=== PATIENT | male | born 1965 | race Two or more races ===

== ENCOUNTER 2020-05-25 12:26 | Outpatient (CLI) | payer MEDICAID ==
--- NOTE | 2020-05-25 13:30 | Consultation ---
DATE OF CONSULTATION: 05/25/2020 CHIEF COMPLAINT: Referral for screening colonoscopy. PAST MEDICAL HISTORY: 1. Hypertension. 2. GERD. 3. Gastritis. PAST SURGICAL HISTORY: He had kind of fishbone stuck in the rectum surgery. MEDICATIONS: Currently on Prilosec. FAMILY HISTORY: No family history of GI malignancies. SOCIAL HISTORY: The patient denies any tobacco, alcohol, or drug abuse. ALLERGIES: To some kind of antibiotics. He does not remember the name, but he is not sure penicillin. REVIEW OF SYSTEMS: A 10-point review of systems was performed and pertinent positives in HPI. PHYSICAL EXAMINATION: VITAL SIGNS: Temperature 98.1. Vital signs stable. HEENT: Normocephalic and atraumatic. Sclerae anicteric. NECK: Supple. No evidence of obvious lymphadenopathy. CARDIOVASCULAR: Regular rate and rhythm. Plus S1 and S2. LUNGS: Decreased breath sounds bilaterally based on supine exam. ABDOMEN: Soft, nontender. No rebound. No guarding. No peritoneal sign. EXTREMITIES: No cyanosis. No clubbing. No edema. ASSESSMENT AND PLAN: The patient is a 54-year-old male, need screening colonoscopy. The patient was given instruction for colonoscopy. Risks and benefits of procedure was explained to him. We will schedule him when authorization is obtained. Melvin Garrett M.D. DR: Chaim JOB#: [id number] CC:
== END 2020-05-25 14:26 | disposition home or self-care (01) ==
LOC: PAN 12:26
DX: K21.9 Gastro-esophageal reflux disease without esophagitis (principal); I10 Essential (primary) hypertension; Z79.899 Other long term (current) drug therapy
CPT/HCPCS: G0463

== ENCOUNTER 2020-08-16 13:52 | Outpatient (CLI) | payer MEDICAID ==
[~2020-08-16 13:52] MED LIST: COLACE100 MG ORAL; PRILOSEC OTC20 MG ORAL; VENTOLIN HFA18 GM INH
[2020-08-16 14:10] VITALS: BP 150/81
[2020-08-16] MEDS ORDERED: LOSARTAN POTASS25 MG ORAL (14:13)
--- NOTE | 2020-08-19 11:35 | General Progress Note ---
Subjective ROS Limited/Unobtainable: Yes Allergies: Uncoded Allergies: ABX (Allergy, Unknown, 06/06/20) Objective General Appearance: alert EENT: normal ENT inspection Neck: supple Cardiovascular: normal rate Respiratory/Chest: decreased breath sounds Abdomen: normal bowel sounds, non tender, soft Extremities: non-tender Assessment/Plan Assessment/Plan: 1. Hypertension. 2. GERD. 3. Gastritis anusol HC miralax RTC prn Melvin Garrett MD Aug 19, 2020 11:35
== END 2020-08-16 15:52 | disposition home or self-care (01) ==
LOC: PAN 13:52
DX: K21.9 Gastro-esophageal reflux disease without esophagitis (principal); I10 Essential (primary) hypertension; K29.70 Gastritis, unspecified, without bleeding; Z88.8 Allergy status to other drugs, medicaments and biological substances
CPT/HCPCS: 99212